=== PATIENT | female | born 1950 | race Caucasian/White ===

== ENCOUNTER 2017-09-29 19:10 | Emergency (ER) | payer MEDICARE, OTHER ==
--- OUTSIDE RECORDS SUMMARY | 2017-09-29 19:57 | XMS REPORT ---
:1950 External Reference #:[id number] Author Organization [facility] Address [address] [place] [address] Phone [phone] Care Team Providers Name Role Phone HCP given Primary Care Physician Unavailable Payers Type Date Identification Numbers Payment Provider Subscriber Commercial Policy Number: [id number] [facility] Keren Hartman PayID: [id number] [address] [place] [address] Problems Date Description Provider Status Onset: 07/01/2003 Malignant tumor of thyroid gland Hu Johnson M.D. Active Onset: 03/27/2004 Pure hypercholesterolemia Hu Johnson M.D. Active Onset: 03/27/2004 Migraine with typical aura Hu Johnson M.D. Active Onset: 04/27/2006 Allergic rhinitis Hu Johnson M.D. Active Onset: 06/09/2012 Obstructive sleep apnea syndrome Hu Johnson M.D. Active Onset: 08/11/2015 History of malignant neoplasm of Hu Johnson M.D. Active thyroid Family History Date Family Member(s) Problem(s) Comments Father Hypercholesterolemia : Father due to [place] (03/14/2017) (age 96 Years) Father High Blood Pressure Father [place] ~age 70 Mother Hypercholesterolemia : Mother due to Unknown but it was during (age 74 Years) Causes post-op period after carotid surgery Mother High Blood Pressure Mother Angina started in her 60s, possibly earlier Mother Carotid Stenosis required endarterectomy Mother AAA First Son Jelani First Son 1968 Second Son Gavin Second Son 1971 Third Son Nate Third Son 1974 Fourth Son Jacky Fourth Son 1981 Number of Siblings Siblings: 2 sisters Social History Type Date Description Comments Education Highest level completed, 12th grade Marital Status had surgery for thyroid CA w/ LN mets 07/01. 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 Allergies, Adverse Reactions, Alerts Date Description Reaction Status Severity Comments 07/23/2010 Tramadol active Itchy, prolonged somnolence 03/27/2004 NKDA inactive Medications Medication Date Status Form Strength Qnty SIG Indications Ordering Provider PT For Low Active please M54.5 Silcoff, Back Pain 017 evaluate and jocelyn Lui, M.DAndres modalities as needed, instruct in hep Magnesium Active 1 by mouth Unknown 017 daily Canibus Active 3 drops in Unknown Tincture 017 water per day Allergy Med Active prn Unknown 017 Synthroid Active Tablets 125mcg 90tabs 1 tab by C73 Hektor, 017 mouth every DAVON Barron morning (at least 30 minutes before breakfast) for thyroid Vitamin D3 Active Capsules 1000Unit 1 po daily Unknown 015 Cpap Active Unknown 015 Mobic Active Tablets 7.5mg 90tabs 1 by mouth M15.0 Irish 013 every day as Walter, needed for D.O. joint pain M79.671 Simvastatin 06/12/2012 Active Tablets 10mg 90tabs take 1 E78.0 Silcoff, tablet by Hu mouth once M.D. daily Coq10 Active 200mg 1 po daily Unknown [place]-3 Active 1 po daily Unknown Multivitamin Active Tablets 1 by mouth Unknown Adult every day Prednisone 03/21/2017 - Hx Tablets 20mg 21tabs 3 by mouth R05 Silcoff, 03/29/2017 every cem Lui M.DAndres for 5 days then 2 every morning for 3 days then stop it J45.991 Advair 03/21/2017 - Hx Aerosol 250-50mcg/Dose 60units inhale 1 R05 Silcoff, Diskus 06/26/2017 puff twice Ellen Lui daily; gargle after use J45.991 Dulera 03/16/2017 - Hx Aerosol 100-5mcg/Act 2samples 2 puffs R05 Hektor , 03/21/2017 twice a day DAVON Barron for cough; stop when cough at bay for 1 week; rinse mouth after use J45.20 Sulfamethoxazole/Trimethoprim 09/28/2016 Hx Tablets 800-160mg 14tabs 1 tab N39.0 Hektor, DS - by Beatrice, 04/04/2017 mouth PA twice a day x7 days Montelukast Sodium 08/16/2016 Hx Tablets 10mg 90tabs one R05 Hektor, - tablet Beatrice, 03/21/2017 by PA mouth every day in the evenin g as needed for cough/ allerg ies J45.20 J30.9 Vitamin B12 08/15/2016 - Hx Tablets 100mcg 1 by mouth Unknown 09/04/2017 every day Amoxicillin 05/28/2016 - Hx Capsules 250mg 30c 1 three times J01.90 Mati AAndres 06/07/2016 aps a day for jake Brown for M.D. bronchitis Synthroid 01/30/2016 - Hx Tablets 112mcg 90t take 1 tablet C73 Silcoff, 12/05/2016 abs every Hu, cem; for M.D. thyroid Vitamin C 01/26/2016 - Hx Tablets 1000mg one po daily Unknown 06/26/2017 Azithromycin 09/26/2015 - Hx Tablets 250mg 6ta 2 by mouth on R05 Silcoff, 10/15/2015 bs day then 1 by margaux Lui daily M.D. for 4 more days; for persistent cough Dulera 09/15/2015 - Hx Aerosol 100-5mcg/ 2sa 2 puffs twice R05 Silcoff, 09/26/2015 Act mpl a day for nasir Lui cough; stop M.D. when cough at bay for 1 week; resume at onset of colds; rinse mouth after use Benzonatate 09/15/2015 - Hx Capsules 200mg 30c 1 by mouth R05 Silcoff, 09/25/2015 aps three times a Hu, day as needed M.D. for cough Fluticasone 09/15/2015 - Hx Suspension 50mcg/Act 16g 2 sprays into J31.0 Silcoff, Propionate 09/26/2015 m each nostril Hu, once daily M.D. for nasal congestion; may stop when symptoms well controlled; resume if needed Echinacea 08/10/2015 - Hx Capsules 1 po daily Unknown 01/26/2016 Calcium/Mag/D 07/24/2014 - Hx 2 po qd Unknown 01/26/2016 [place] Wort 05/29/2014 - Hx Capsules 2 by mouth Silcoff, 06/26/2017 every day Ellen Lui Temazepam 07/17/2013 - Hx Capsules 15mg 30c 1-2 by mouth 780.52 Silcoff , 01/24/2014 aps every night Hu, as needed for M.D. sleep (take 30min or less before bed) Mobic 05/03/2013 - Hx Tablets 7.5mg 30t 1 by mouth 715.09 Sopchak, 07/16/2013 abs every day Fanta Watson Sulfamethoxazole 12/12/2012 - Hx Tablets 800-160mg 6ta 1 po bid x3 595.0 Silcoff, /Trimethoprim DS 12/15/2012 bs days; for Hu urinary tract M.D. infection Amoxicillin 04/20/2012 - Hx Capsules 500mg 21c 1 tid for 7 595.0 Mati A. 04/27/2012 aps days Ellen Herrera Gabapentin 12/23/2011 - Hx Capsules 100mg 90c Start 1 po 327.52 Silcoff , 04/19/2012 aps qhs, increase Hu, after 1 week M.D. to 2 tabs qhs x 1 wk, then 3 tabs po qhs Vicodin 07/24/2011 - Hx Tablets 5mg;500 20t 1-2 po q4 525.9 Silcoff, 12/22/2011 mg abs hours prn Ellen Lui Amoxicillin/Pota 07/24/2011 - Hx Tablets 875-125mg 20t 1 tab po bid 525.9 Silcoff, ssium 12/22/2011 abs x 10 days Naomi Luiulanate Ellen Zocor 09/09/2010 - Hx Tablets 10mg 90t 1 po qd 272.0 Silcoff, 06/12/2012 abs Ellen Lui PT For Right 09/09/2010 - Hx evaluate and 719.46 Silcoff, Knee Pain 06/07/2011 treatHu modalities Shravan.Dereje prn, instruct in hep PT For Bilateral 09/09/2010 - Hx evaluate and 726.5 Silcoff, Hip 06/07/2011 Hu banks Pain/Trochanteri modalities Ellen c Bursitis prn, instruct in hep Tramadol HCL 07/22/2010 - Hx Tablets 50mg 50t 1-2 po q6h 729.1 Silcoff, 07/23/2010 abs prn for pain Ellen Lui Cytomel 06/22/2010 - Hx Tablets 25mcg 30t 1 po qd for 193 Silcoff, 06/28/2010 abs thyroid and Hu fatigue Ellen 780.79 Denavir 06/08/2010 - Hx Cream 1% 1.5gm apply q2 hours 054.9 Silcoff, 05/03/2013 while awake x 4 Ellen Lui days at first symptom of developing cold sore or sore in nose PT For Low 04/22/2009 - Hx please evaluate 724.2 Silcoff, Back Pain 08/05/2009 and Hu banks M.D. (Suspect modalities prn, DDD) instruct in hep Amanda D 11/07/2006 - Hx Tablets 60mg;12 60tabs 1 po bid prn 477.8 Silcoff, 09/07/2009 0 mg for nasal/sinus Ellen Lui congestion 381.81 477.9 PT Referral 07/09/2006 - Hx Please Evaluate Silcoff, For Right Knee 07/26/2007 And Hu Banks M.D. Pain Modalities prn PT Referral 07/09/2006 - Hx please evaluate Silcoscooter, For Right Hip 07/26/2007 and Hu banks M.D. And Si Pain modalities prn Celebrex 07/01/2006 - Hx Capsules 200mg 100ca 1 po 1-2x/D 719.4 Silcoff , 04/21/2009 ps 5 Ellen Lui 719.46 Estradiol 04/27/2006 - Hx Tablets 0.5mg 0tabs 1 po qod Unknown 06/07/2011 Amanda 04/27/2006 - Hx Tablets 180mg 1 po qd prn for 477.8 Silcoff, 11/07/2006 allergies Ellen Lui 381.81 477.9 Amanda D 11/26/2005 - Hx Tablets 60mg;120 mg 90tabs 1 bid for 477.8 Mati A. 04/27/2006 allergy and Klepasarah, congestion M.DAndres 381.81 477.9 Guaifenesin 11/26/2005 - Hx Tablets 1200mg 60tabs 1 bid until 381.81 Mati A. 12/27/2005 gone for Klesherrill congestion M.DAndres and tightness Vicodin 10/14/2005 - Hx Tablets 5mg;500 30tabs 1-2 po q4 724.2 klepack 04/21/2009 mg hours prn Tessalon 10/04/2005 - Hx Perles 100mg 30units 1-2 PO tid 786.2 Silcoff, 10/14/2005 prn Cough Ellen Lui Zithromax 10/04/2005 - Hx Tablets 250mg 1Pack 2 PO On Day 786.2 Silcoff , Z-Trace 10/09/2005 1, 1 PO On Hu, Days 2-5 M.D. Imitrex 03/27/2004 - Hx Tablets 25mg 30tabs 1 po prn as V07.2 Silcoff, 04/21/2009 directed for Hu migraineEllen smalls may repeat after 2 hours 346.00 Synthroid 09/13/2003 - Hx Tablets 125mcg 45tabs Take 1 C73 Silcoff, 01/30/2016 Tablet Hu, Every Other M.D. Day; for thyroid Synthroid 07/01/2003 - Hx Tablets 125mcg 1 po qam on Silcoff, 07/01/2003 empty Hu stomach Ellen Zocor 07/01/2003 - Hx Tablets 10mg 90tabs 1 po qd 272.0 Silcoff, 07/22/2010 Ellen Lui Synthroid 07/01/2003 - Hx Tablets 112mcg 45tabs Take 1 C73 Silcoff, 01/30/2016 Tablet Hu, Every Other M.D. Day; for thyroid Imitrex 04/22/2003 - Hx Tablets 50mg 20tabs 1 po for Silcoff, 03/27/2004 migraine Hu, may repeat M.D. q2h prn Multivitamins - Hx Tablets 100tabs 1 po qd Unknown 09/03/2014 Shaneka-C - Hx Tablets 1000mg 1 qd Unknown 01/24/2014 B Complex - Hx 1 qd Unknown 07/23/2014 Zinc - Hx Unknown 08/11/2015 Glucosamine/Chond - Hx Capsules 2 po daily Unknown roitin Maximum 09/04/2017 Strength Immunizations CPT Code Status Date Vaccine Lot # [id number] Given 08/04/2017 Influenza Virus Vaccine, Quadrivalent, Split, [id number] Preservative Free 55348 Given 06/29/2016 Pneumococcal Immunization 14399 Given 06/29/2016 Influenza Vaccine Split Virus Preservative Free [place] Use 83200 Given 06/23/2015 Prevnar 13 43020 Given 06/23/2015 Influenza Vaccine Split Virus Preservative Free [place] Use 96313 Given 05/24/2014 Influenza Virus Vaccine, Quadrivalent, Split, [id number] Preservative Free 05859 Given 06/21/2013 Flu, Split Virus 3Yrs 20212 Given 08/22/2012 Flu, Split Virus 3Yrs 05512 Given 06/08/2011 Zostavax [id number] 34578 Given 04/27/2006 Adacel or Boostrix, TDaP [id number] 20046 Refused 06/08/2011 Flu, Split Virus 3Yrs 41583 Refused 06/08/2010 Flu, Split Virus 3Yrs Vital Signs Date Vital Result Comment 09/05/2017 BP Systolic 154 mmHg repeat 142/82 (per nurses) BP Diastolic 78 mmHg repeat 142/82 (per nurses) BP Systolic Recheck 158 mmHg BP Diastolic Recheck 82 mmHg Weight 174.00 lb 06/27/2017 BP Systolic 120 mmHg BP Diastolic 78 mmHg Weight 170.00 lb w/sandals 04/05/2017 BP Systolic 122 mmHg BP Diastolic 70 mmHg Weight 170.00 lb with sandals 03/21/2017 BP Systolic 148 mmHg BP Diastolic 84 mmHg O2 % BldC Oximetry 96 % 03/16/2017 BP Systolic 124 mmHg BP Diastolic 76 mmHg Body Temperature 98.2 F Height 65 inches 5'5" Weight 170.00 lb BMI (Body Mass Index) 28.3 kg/m2 09/28/2016 BP Systolic 142 mmHg BP Diastolic 62 mmHg Weight 173.00 lb 08/16/2016 BP Systolic 122 mmHg BP Diastolic 70 mmHg Heart Rate 80 /min reg Respiratory Rate 14 /min not laboured Height 65 inches 5'5" Weight 171.00 lb BMI (Body Mass Index) 28.5 kg/m2 05/28/2016 BP Systolic 128 mmHg BP Diastolic 68 mmHg Body Temperature 98.5 F Weight 168.00 lb 04/13/2016 BP Systolic 118 mmHg BP Diastolic 76 mmHg Weight 168.00 lb 01/27/2016 BP Systolic 122 mmHg BP Diastolic 80 mmHg Height 65.5 inches 5'5.50" with sneakers Weight 170.00 lb with sneakers BMI (Body Mass Index) 27.9 kg/m2 10/16/2015 BP Systolic 130 mmHg BP Diastolic 72 mmHg Weight 170.00 lb 09/15/2015 BP Systolic 142 mmHg BP Diastolic 66 mmHg Heart Rate 80 /min reg Respiratory Rate 14 /min not laboured Body Temperature 98.1 F Weight 170.00 lb 08/11/2015 BP Systolic 140 mmHg BP Diastolic 74 mmHg BP Systolic Recheck 144 mmHg R arm sitting BP Diastolic Recheck 86 mmHg R arm sitting Heart Rate 76 /min reg Respiratory Rate 12 /min not laboured Height 64.25 inches 5'4.25" Weight 166.00 lb BMI (Body Mass Index) 28.3 kg/m2 12/12/2014 BP Systolic 138 mmHg BP Diastolic 76 mmHg Body Temperature 98.0 F Height 65.25 inches 5'5.25" shoes on Weight 170.00 lb shoes on BMI (Body Mass Index) 28.1 kg/m2 08/06/2014 BP Systolic 118 mmHg BP Diastolic 70 mmHg Weight 160.00 lb 05/24/2014 BP Systolic 114 mmHg BP Diastolic 68 mmHg Heart Rate 80 /min reg Respiratory Rate 12 /min not laboured Body Temperature 98.4 F Height 64.5 inches 5'4.50" Weight 163.00 lb BMI (Body Mass Index) 27.5 kg/m2 02/08/2014 BP Systolic 120 mmHg BP Diastolic 74 mmHg Body Temperature 98.4 F Weight 164.00 lb 07/17/2013 BP Systolic 118 mmHg BP Diastolic 82 mmHg Height 64.50 inches 5'4.50" Weight 163.00 lb BMI (Body Mass Index) 27.5 kg/m2 05/03/2013 BP Systolic 110 mmHg BP Diastolic 76 mmHg Weight 163.00 lb 03/14/2013 BP Systolic 128 mmHg BP Diastolic 86 mmHg Body Temperature 98.2 F Weight 160.00 lb 12/12/2012 BP Systolic 116 mmHg BP Diastolic 78 mmHg Body Temperature 98.0 F Height 64.5 inches 5'4.50" Weight 166.00 lb BMI (Body Mass Index) 28.1 kg/m2 06/09/2012 BP Systolic 130 mmHg BP Diastolic 86 mmHg Height 65 inches 5'5" Weight 164.00 lb BMI (Body Mass Index) 27.3 kg/m2 Last Menstrual Period 0 04/20/2012 BP Systolic 126 mmHg BP Diastolic 90 mmHg Body Temperature 98.4 F Weight 160.00 lb Last Menstrual Period 0 12/23/2011 BP Systolic 129 mmHg BP Diastolic 76 mmHg Heart Rate 75 /min Body Temperature 98.4 F Weight 164.00 lb 07/24/2011 BP Systolic 134 mmHg BP Diastolic 80 mmHg Heart Rate 68 /min Body Temperature 98.0 F Weight 163.00 lb 06/08/2011 BP Systolic 100 mmHg BP Diastolic 64 mmHg Height 65 inches 5'5" Weight 163.00 lb BMI (Body Mass Index) 27.1 kg/m2 09/09/2010 BP Systolic 116 mmHg BP Diastolic 78 mmHg Weight 166.00 lb 07/22/2010 BP Systolic 128 mmHg BP Diastolic 68 mmHg Weight 165.00 lb 06/08/2010 BP Systolic 122 mmHg BP Diastolic 84 mmHg Heart Rate 72 /min reg Respiratory Rate 12 /min not laboured 08/06/2009 BP Systolic 102 mmHg BP Diastolic 76 mmHg Body Temperature 98.4 F Weight 164.00 lb Last Menstrual Period 0 04/22/2009 BP Systolic 118 mmHg BP Diastolic 78 mmHg Weight 162.00 lb Last Menstrual Period 0 08/13/2008 BP Systolic 100 mmHg BP Diastolic 78 mmHg BP Systolic Recheck 124 mmHg R arm lying; 120/74 standing BP Diastolic Recheck 80 mmHg R arm lying; 120/74 standing Heart Rate 72 /min reg Body Temperature 98.4 F Height 65 inches 5'5" Weight 170.00 lb BMI (Body Mass Index) 28.3 kg/m2 03/29/2008 BP Systolic 122 mmHg BP Diastolic 78 mmHg Height 65 inches 5'5" Weight 167.00 lb BMI (Body Mass Index) 27.8 kg/m2 Last Menstrual Period 0 07/26/2007 BP Systolic 116 mmHg BP Diastolic 80 mmHg Height 65 inches 5'5" Weight 163.00 lb BMI (Body Mass Index) 27.1 kg/m2 10/12/2006 BP Systolic 106 mmHg BP Diastolic 74 mmHg Height 65 inches 5'5" Weight 163.50 lb BMI (Body Mass Index) 27.2 kg/m2 07/01/2006 BP Systolic 102 mmHg BP Diastolic 80 mmHg Height 65 inches 5'5" Weight 159.00 lb BMI (Body Mass Index) 26.5 kg/m2 Last Menstrual Period 0 04/27/2006 BP Systolic 134 mmHg lg cuff BP Diastolic 76 mmHg lg cuff BP Systolic Recheck 132 mmHg R arm sitting BP Diastolic Recheck 76 mmHg R arm sitting Heart Rate 76 /min reg Respiratory Rate 12 /min not laboured Height 65 inches 5'5" Weight 155.00 lb BMI (Body Mass Index) 25.8 kg/m2 11/26/2005 BP Systolic 125 mmHg BP Diastolic 70 mmHg Body Temperature 97.7 F Height 65 inches 5'5" Weight 156.00 lb BMI (Body Mass Index) 26.0 kg/m2 10/14/2005 BP Systolic 110 mmHg BP Diastolic 78 mmHg Body Temperature 98.0 F Height 65 inches 5'5" 10/04/2005 BP Systolic 108 mmHg BP Diastolic 70 mmHg Body Temperature 97.4 F Height 65 inches 5'5" 08/31/2005 BP Systolic 112 mmHg BP Diastolic 78 mmHg Height 65 inches 5'5" Weight 156.00 lb BMI (Body Mass Index) 26.0 kg/m2 03/10/2005 BP Systolic 100 mmHg BP Diastolic 70 mmHg Height 65 inches 5'5" Weight 166.00 lb BMI (Body Mass Index) 27.6 kg/m2 03/27/2004 BP Systolic 118 mmHg R Arm Sitting BP Diastolic 80 mmHg R Arm Sitting Height 65 inches 5'5" Weight 160.00 lb BMI (Body Mass Index) 26.6 kg/m2 07/01/2003 BP Systolic 118 mmHg BP Diastolic 76 mmHg Weight 168.00 lb Results Test Date Test Result H/L Range Note Lyme Western Blot 08/08/2017 Lyme Disease IgG Ab WB Negative Negative Lyme Disease IgG Bands Present p41, kDa Lyme Disease IgM Ab WB Negative Negative Lyme Disease IgM Bands Present p41, kDa Lyme Disease Interpretation See Comment 1 Urine Micro Inhouse 06/27/2017 Ua WBC - 2 Ua RBC - 2 Ua Casts - 2 Ua Epi - 2 Ua Other - 2 Ua Glucose - 2 Ua Bilirubin - 2 Ua Ketones - 2 Ua Specific [place] 1.010 2 Ua Blood - 2 Ua PH 6.0 2 Ua Protein - 2 Ua Urobilinogen - 2 Ua Nitrite - 2 Ua Leukocytes - 2 Laboratory test 03/01/2017 TSH (Thyroid Stim Horm) 0.12 mcIU/mL Low 0.34- 5.60 finding Lipid Profile 12/02/2016 Triglycerides 168 mg/dL 3 (Trig/Chol/HDL) Cholesterol 192 mg/dL 4 HDL Cholesterol 47.4 mg/dL 5 LDL Cholesterol 111 mg/dL 6 Laboratory test finding 12/02/2016 TSH (Thyroid Stim Horm) 0.64 mcIU/mL 0.34-5.60 7 Culture Urine Inhouse 09/28/2016 Colonies 06/22 8 Ua Inhouse 09/28/2016 Ua Glucose - 8 Ua Bilirubin - 8 Ua Ketones - 8 Ua Specific [place] 1.005 8 Ua Blood 3+ 8 Ua PH 5.0 8 Ua Protein - 8 Ua Urobilinogen - 8 Ua Nitrite - 8 Ua Leukocytes 2+ 8 Laboratory test 06/21/2016 TSH (Thyroid Stim Horm) 0.17 mcIU/mL Low 0.34- 5.60 9 finding Lipid Profile 06/21/2016 Triglycerides 123 mg/dL 10 (Trig/Chol/HDL) Cholesterol 189 mg/dL 11 HDL Cholesterol 45.9 mg/dL 12 LDL Cholesterol 119 mg/dL 13 CBC Auto Diff 04/13/2016 White Blood Count 6.1 10^3/uL 3.5-10.8 14 Red Blood Count 5.11 10^6/uL 4.0-5.4 14 Hemoglobin 14.6 g/dL 12.0-16.0 14 Hematocrit 44 % 35-47 14 Mean Corpuscular Volume 86 fL 80-97 14 Mean Corpuscular Hemoglobin 29 pg 27-31 14 Mean Corpuscular HGB Conc 33 g/dL 31-36 14 Red Cell Distribution Width 14 % 10.5-15 14 Platelet Count 219 10^3/uL 150-450 14 Mean Platelet Volume 9 um3 7.4-10.4 14 Abs Neutrophils 3.3 10^3/uL 1.5-7.7 14 Abs Lymphocytes 1.9 10^3/uL 1.0-4.8 14 Abs Monocytes 0.5 10^3/uL 0-0.8 14 Abs Eosinophils 0.3 10^3/uL 0-0.6 14 Abs Basophils 0.1 10^3/uL 0-0.2 14 Abs Nucleated RBC 0.02 10^3/uL 14 Granulocyte % 54.3 % 38-83 14 Lymphocyte % 30.7 % 25-47 14 Monocyte % 8.3 % 1-9 14 Eosinophil % 5.7 % 0-6 14 Basophil % 1.0 % 0-2 14 Nucleated Red Blood Cells % 0.3 14 Comp Metabolic Panel 04/13/2016 Sodium 136 mmol/L 133-145 14 Potassium 4.5 mmol/L 3.5-5.0 14 Chloride 100 mmol/L Low 101-111 14 Co2 Carbon Dioxide 31 mmol/L 22-32 14 Anion Gap 5 mmol/L 2-11 14 Glucose 81 mg/dL 70-100 14 Blood Urea Nitrogen 26 mg/dL High 6-24 14 Creatinine 0.85 mg/dL 0.51-0.95 14 BUN/Creatinine Ratio 30.6 High 8-20 14 Calcium 9.3 mg/dL 8.6-10.3 14 Total Protein 7.6 g/dL 6.4-8.9 14 Albumin 4.4 g/dL 3.2-5.2 14 Globulin 3.2 g/dL 2-4 14 Albumin/Globulin Ratio 1.4 1-3 14 Total Bilirubin 0.30 mg/dL 0.2-1.0 14 Alkaline Phosphatase 85 U/L 34-104 14 Alt 23 U/L 7-52 14 Ast 27 U/L 13-39 14 Egfr Non- 66.9 >60 14 Egfr 86.1 >60 14, 15 Laboratory test finding 04/13/2016 Erythrocyte Sed Rate 16 mm/Hr 0-40 14 , 16 Protein Electrophoresis 04/13/2016 Total Protein(Pep) 7.9 g/dL 6.3 - 7.9 14 Albumin 3.7 g/dL 3.4-4.7 14 Alpha-1 Globulin 0.2 g/dL 0.1-0.3 14 Alpha-2 Globulin 1.0 g/dL 0.6-1.0 14 Beta Globulin 1.1 g/dL 0.7-1.2 14 Gamma Globulin 1.8 g/dL 0.6-1.6 14 Albumin/Globulin Ratio 0.90 14 Impression See Comment 14, 17 Xray 04/13/2016 X-Ray, Hips, 2 View wnl With Pelvis - Left Laboratory test finding 01/27/2016 TSH (Thyroid Stim 0.05 ?IU/mL Low 0.34- 5.60 Horm) CBC Auto Diff 01/27/2016 White Blood Count 5.0 10^3/uL 3.5-10.8 Red Blood Count 4.75 10^6/uL 4.0-5.4 Hemoglobin 13.7 g/dL 12.0-16.0 Hematocrit 42 % 35-47 Mean Corpuscular Volume 89 fL 80-97 Mean Corpuscular Hemoglobin 29 pg 27-31 Mean Corpuscular HGB Conc 32 g/dL 31-36 Red Cell Distribution Width 14 % 10.5-15 Platelet Count 229 10^3/uL 150-450 Mean Platelet Volume 9 um3 7.4-10.4 Abs Neutrophils 2.9 10^3/uL 1.5-7.7 Abs Lymphocytes 1.6 10^3/uL 1.0-4.8 Abs Monocytes 0.4 10^3/uL 0-0.8 Abs Eosinophils 0.2 10^3/uL 0-0.6 Abs Basophils 0 10^3/uL 0-0.2 Abs Nucleated RBC 0.01 10^3/uL Granulocyte % 56.7 % 38-83 Lymphocyte % 31.1 % 25-47 Monocyte % 8.0 % 1-9 Eosinophil % 3.6 % 0-6 Basophil % 0.6 % 0-2 Nucleated Red Blood Cells % 0.1 Lipid Profile (Trig/Chol/HDL) 08/22/2015 Triglycerides 97 mg/dL 18 Cholesterol 193 mg/dL 19 HDL Cholesterol 52.8 mg/dL 20 LDL Cholesterol 121 mg/dL 21 Laboratory test finding 08/22/2015 TSH (Thyroid Stim 0.19 ?IU/mL Low 0.34- 5.60 Horm) Alt (SGPT) 25 U/L 7-52 CBC Auto Diff 05/24/2014 White Blood Count 6.9 10^3/uL 4.8-10.8 Red Blood Count 4.65 10^6/uL 4.0-5.4 Hemoglobin 13.7 g/dL 12.0-16.0 Hematocrit 40 % 35-47 Mean Corpuscular Volume 87 fL 80-97 Mean Corpuscular Hemoglobin 30 pg 27-31 Mean Corpuscular HGB Conc 34 g/dL 31-36 Red Cell Distribution Width 14 % 10.5-15 Platelet Count 222 10^3/uL 150-450 Mean Platelet Volume 9 um3 7.4-10.4 Abs Neutrophils 4.2 10^3/uL 1.5-7.7 Abs Lymphocytes 1.9 10^3/uL 1.0-4.8 Abs Monocytes 0.6 10^3/uL 0-0.8 Abs Eosinophils 0.1 10^3/uL 0-0.6 Abs Basophils 0.1 10^3/uL 0-0.2 Abs Nucleated RBC 0 10^3/uL Granulocyte % 61.0 % 38-83 Lymphocyte % 28.0 % 25-47 Monocyte % 8.2 % 1-9 Eosinophil % 2.0 % 0-6 Basophil % 0.8 % 0-2 Nucleated Red Blood Cells % 0 Laboratory test 05/24/2014 TSH (Thyroid Stimulating 0.13 IU/mL Low 0.34- 5.60 finding Horm) Laboratory test 02/04/2014 TSH (Thyroid Stimulating 0.13 IU/mL Low 0.34- 5.60 22 finding Horm) Lipid Profile 02/04/2014 Triglycerides 137 mg/dL 23 (Trig/Chol/HDL) Cholesterol 154 mg/dL 24 HDL Cholesterol 39.3 mg/dL 25 LDL Cholesterol 87 mg/dL 26 Laboratory test finding 02/04/2014 Alt 19 U/L 7-52 27 Urine Culture And 12/16/2013 Urine Culture (SEE NOTE) 28 Sensitivities Laboratory test finding 01/31/2013 TSH (Thyroid 0.26 miu/mL Low 0.34-5.60 Stimulating Horm) Hepatitis C Antibody Nonreactive Nonreactive Lipid Profile (Trig/Chol/HDL) 01/31/2013 Triglycerides 133 mg/dL 40-200 Cholesterol 177 mg/dL Less than 200 HDL Cholesterol 50 mg/dL 40-60 29 Cholesterol/HDL Ratio 3.5 Average 1-4.44 LDL Cholesterol 100.4 mg/dL High Less Than 100 30 Laboratory test finding 01/31/2013 Alt 24 U/L 14-54 Culture Urine Inhouse 12/12/2012 Colonies confluent Urine Micro Inhouse 12/12/2012 Ua WBC 10-20 Ua RBC 3-8 Ua Casts - Ua Epi - Ua Other WBC clumps and bacteria Ua Glucose - Ua Bilirubin - Ua Ketones - Ua Specific [place] 1.015 Ua Blood lg Ua PH 6.0 Ua Protein 1+ Ua Urobilinogen - Ua Nitrite + Ua Leukocytes sm Culture Urine Inhouse 05/18/2012 Colonies NO GROWTH Urine Micro Inhouse 05/18/2012 Ua WBC - Ua RBC - Ua Casts - Ua Epi - Ua Other - Ua Glucose - Ua Bilirubin - Ua Ketones - Ua Specific [place] 1.010 Ua Blood - Ua PH 7.0 Ua Protein - Ua Urobilinogen - Ua Nitrite - Ua Leukocytes - Urine Micro Inhouse 04/27/2012 Ua WBC 0-1 Ua RBC - Ua Casts - Ua Epi 3-6 Ua Other - Ua Glucose - Ua Bilirubin - Ua Ketones - Ua Specific [place] 1.005 Ua Blood - Ua PH 6.0 Ua Protein - Ua Urobilinogen - Ua Nitrite - Ua Leukocytes - Culture Urine Inhouse 04/27/2012 Colonies 06/24 confluen Urine Micro Inhouse 04/20/2012 Ua WBC loaded Ua RBC loaded Ua Casts - Ua Epi - Ua Other bacteria Ua Glucose - Ua Bilirubin - Ua Ketones - Ua Specific [place] 1.010 Ua Blood lrg Ua PH 7.5 Ua Protein 1+ Ua Urobilinogen - Ua Nitrite + Ua Leukocytes lrg Culture Urine Inhouse 04/20/2012 Colonies 06/24 Comp Metabolic Panel 12/30/2011 Sodium 138 mmol/L 135-145 31 Potassium 4.7 mmol/L 3.5-5.0 31 Chloride 99 mmol/L Low 101-111 31 Co2 (Carbon Dioxide) 32.0 mmol/L 22-32 31 Anion Gap 7.0 mmol/L 2-11 31, 32 Glucose 91 mg/dL 70-100 31 BUN 14 mg/dL 6-24 31 Creatinine 0.9 mg/dL 0.50-1.40 31 One Over Creatinine 1.11 31 BUN/Creatinine Ratio 15.6 8-20 31 Calcium 9.5 mg/dL 8.1-9.9 31 Total Protein 7.3 GM/DL 6.2-8.1 31 Albumin 4.2 GM/DL 3.2-5.2 31 Globulin 3.1 GM/DL 2-4 31 Albumin/Globulin Ratio 1.4 1-3 31 Bilirubin Total 0.6 mg/dL 0.4-1.5 31, 33 Alkaline Phosphatase 73 U/L 30-110 31 Alt (SGPT) 19 U/L 14-54 31 Ast (Sgot) 23 U/L 12-42 31 eGFR Non- 63.4 > 60 31 eGFR 81.6 > 60 31, 34 Laboratory test finding 12/30/2011 Magnesium 2.2 mg/dL 1.7-2.6 31 Vitamin D, 25 Hydroxy 12/30/2011 25-Hydroxy Vitamin D2 <4.0 ng/mL () 31 25-Hydroxy Vitamin D3 33 ng/mL () 31 25-Hydroxy Vitamin D Total 33 ng/mL () 31, 35 Laboratory test finding 12/28/2011 Alt (SGPT) 21 U/L 14-54 Lipid Profile (Trig/Chol/HDL) 12/28/2011 Triglyceride 145 mg/dL 40-200 Cholesterol 157 mg/dL Less Than 200 36 High Density Lipoprotein 44 mg/dL 40-60 37 Cholesterol/HDL Ratio 3.57 AVERAGE 1-4.44 Low Density Lipoprotein 84 mg/dL Less Than 100 38 Laboratory test finding 12/28/2011 TSH 0.22 MIU/ML Low 0.34-5.60 Laboratory test finding 06/01/2011 TSH 0.49 MIU/ML 0.34-5.60 Lipid Profile (Trig/Chol/HDL) 06/01/2011 Triglyceride 144 mg/dL 40-200 Cholesterol 187 mg/dL Less Than 200 39 High Density Lipoprotein 50 mg/dL 40-60 40 Cholesterol/HDL Ratio 3.74 AVERAGE 1-4.44 Low Density Lipoprotein 108 mg/dL High Less Than 100 41 Laboratory test finding 06/01/2011 Alt (SGPT) 22 U/L 14-54 Laboratory test finding 07/22/2010 CPK (Creatine Kinase) 109 U/L 0-170 C Reactive Protein 1.0 mg/dL High Less Than 0.5 Erythrocyte Sed Rate 25 MM/HR 0-30 CBC With Electronic Diff 07/22/2010 White Blood Count 6.4 CUMM 4.8-10.8 Red Cell Count 4.76 CUMM 4.2-5.4 Hemoglobin 14.1 g/dL 12.0-16.0 Hematocrit 41 % 35-47 Mean Corpuscular Volume 87 um3 79-97 Mean Corpuscular Hemoglob 30 pg 27-31 Mean Corpuscular HGB Cone 34 g/dL 32-36 Redcell Distribution WDTH 13 % 10.5-15 Platelet Count 245 CUMM 150-450 Mean Platelet Volume 8.0 um3 7.4-10.4 Gran % 63.1 % 38-83 Lymph % 27.3 % 25-47 Mononuclear % 6.4 % 1-9 Eosinophil % 2.8 % 0-6 Basophil % 0.4 % 0-2 Abs Lymphs 1.7 1.0-4.8 Abs Mononuclear 0.4 0-0.8 Absolute Neutrophil Count 4.0 1.5-7.7 Abs Eosinophils 0.2 0-0.6 Abs Basophils 0 0-0.2 Laboratory test finding 06/11/2010 TSH 0.43 MIU/ML 0.34-5.60 Thyroglobulin,Tumor 06/11/2010 Thyroglobulin AB SCRN <1.8 IU/mL < 4.0 Marker Thyroglobulin Tumor Marker 1.8 ng/mL () 42 Lipid Profile (Trig/Chol/HDL) 06/11/2010 Triglyceride 141 mg/dL 40-200 Cholesterol 195 mg/dL Less Than 200 43 High Density Lipoprotein 49 mg/dL 40-60 44 Cholesterol/HDL Ratio 3.98 AVERAGE 1-4.44 Low Density Lipoprotein 118 mg/dL High Less Than 100 45 Laboratory test finding 06/11/2010 Thyroxine 10.5 g/dL 5-12 CBC With Electronic Diff 06/11/2010 White Blood Count 5.4 CUMM 4.8-10.8 Red Cell Count 4.71 CUMM 4.2-5.4 Hemoglobin 14.0 g/dL 12.0-16.0 Hematocrit 41 % 35-47 Mean Corpuscular Volume 88 um3 79-97 Mean Corpuscular Hemoglob 30 pg 27-31 Mean Corpuscular HGB Cone 34 g/dL 32-36 Redcell Distribution WDTH 14 % 10.5-15 Platelet Count 227 CUMM 150-450 Mean Platelet Volume 8.0 um3 7.4-10.4 Gran % 55.5 % 38-83 Lymph % 34.7 % 25-47 Mononuclear % 6.5 % 1-9 Eosinophil % 2.8 % 0-6 Basophil % 0.5 % 0-2 Abs Lymphs 1.9 1.0-4.8 Abs Mononuclear 0.4 0-0.8 Absolute Neutrophil Count 3.0 1.5-7.7 Abs Eosinophils 0.2 0-0.6 Abs Basophils 0 0-0.2 Comp Metabolic Panel 06/11/2010 Sodium 139 mmol/L 135-145 Potassium 4.3 mmol/L 3.5-5.0 Chloride 101 mmol/L 101-111 Co2 (Carbon Dioxide) 32.0 mmol/L 22-32 Anion Gap 6.0 mmol/L 2-11 46 Glucose 88 mg/dL 70-100 47 BUN 15 mg/dL 6-24 Creatinine 0.80 mg/dL 0.50-1.40 One Over Creatinine 1.20 BUN/Creatinine Ratio 18.8 8-20 Calcium 9.3 mg/dL 8.1-9.9 Total Protein 7.8 GM/DL 6.2-8.1 Albumin 4.3 GM/DL 3.2-5.2 Globulin 3.5 GM/DL 2-4 Albumin/Globulin Ratio 1.2 1-3 Bilirubin Total 0.8 mg/dL 0.4-1.5 48 Alkaline Phosphatase 78 U/L 30-110 Alt (SGPT) 26 U/L 14-54 Ast (Sgot) 27 U/L 12-42 eGFR Non- 77.8 > 60 eGFR 94.1 > 60 49 Laboratory test finding 06/11/2010 T3 Free 3.12 pg/mL 2.39-6.79 Laboratory test finding 04/23/2009 TSH 0.20 MIU/ML Low 0.34-5.60 Lipid Profile (Trig/Chol/HDL) 04/23/2009 Triglyceride 127 mg/dL 40-200 Cholesterol 182 mg/dL Less Than 200 50 High Density Lipoprotein 47 mg/dL 40-60 51 Cholesterol/HDL Ratio 3.87 AVERAGE 1-4.44 Low Density Lipoprotein 110 mg/dL High Less Than 100 52 Laboratory test finding 04/23/2009 Alt (SGPT) 23 U/L 14-54 Laboratory test finding 04/03/2008 TSH 0.33 MIU/ML Low 0.34-5.60 Lipid Profile (Trig/Chol/HDL) 04/03/2008 Triglyceride 118 mg/dL 40-200 Cholesterol 181 mg/dL Less Than 200 53 High Density Lipoprotein 50 mg/dL 40-60 54 Cholesterol/HDL Ratio 3.62 AVERAGE 1-4.44 Low Density Lipoprotein 107 mg/dL High Less Than 100 55 Laboratory test finding 04/03/2008 Alt (SGPT) 23 U/L 14-54 Lipid Profile 12/27/2006 Cholesterol/HDL Ratio 4.84 AVERAGE High 1-4.44 (Trig/Chol/HDL) Cholesterol 242 mg/dL High Less Than 200 56 Triglyceride 119 mg/dL 40-200 High Density Lipoprotein 50 mg/dL 40-60 Low Density Lipoprotein 168 mg/dL High Less Than 100 57 Laboratory test finding 12/27/2006 Alt (SGPT) 26 U/L 14-54 Glucose 87 mg/dL 70-105 Laboratory test finding 12/27/2006 TSH 0.39 MIU/ML 0.34-5.60 Laboratory test finding 03/30/2006 Alt (SGPT) 24 U/L 14-54 Lipid Profile 03/30/2006 Cholesterol/HDL Ratio 3.34 AVERAGE 1-4.44 (Trig/Chol/HDL) Cholesterol 177 mg/dL Less Than 200 58 Triglyceride 90 mg/dL 40-200 High Density Lipoprotein 53 mg/dL 40-60 Low Density Lipoprotein 106 mg/dL High Less Than 100 59 Laboratory test finding 03/30/2006 TSH 0.38 MIU/ML 0.34-5.60 Laboratory test finding 03/12/2005 TSH 0.15 MIU/ML Low 0.34-5.60 Alt (SGPT) 21 U/L 14-54 Lipid Profile 03/12/2005 Cholesterol/HDL Ratio 3.62 AVERAGE 1-4.44 (Trig/Chol/HDL) Cholesterol 170 mg/dL Less Than 200 60 Triglyceride 179 mg/dL 40-200 High Density Lipoprotein 47 mg/dL 40-60 Low Density Lipoprotein 87 mg/dL Less Than 100 61 Laboratory test finding 03/24/2004 TSH 0.12 MIU/ML Low 0.34-5.60 Laboratory test finding 10/15/2003 TSH 0.39 Laboratory test finding 08/27/2003 TSH 0.69 MIU/ML 0.34-5.60 Lipid Profile 08/27/2003 Cholesterol/HDL 4.10 AVERAGE 1-4.44 (Trig/Chol/HDL) Ratio Cholesterol 205 mg/dL High Less Than 200 62 Triglyceride 201 mg/dL High 40-200 High Density Lipoprotein 50 mg/dL 40-60 Low Density Lipoprotein 115 mg/dL High Less Than 100 63 Laboratory test finding 08/27/2003 Alt (SGPT) 21 U/L 14-54 1 Specific serologic response to B. burgdorferi infection is not detected, but cannot rule out early infection during which low or undetectable antibody levels to B. burgdorferi may be present. If clinically indicated, a new serum specimen should be submitted in 7-14 days. ADDITIONAL INFORMATION CDC criteria require >=5 bands for IgG or >=2 bands for IgM for the Immunoblot to be considered positive. Bands (e.g.,p41) may be detected in patients without Lyme disease, and patterns not meeting the CDC criteria should be interpreted with caution. Immunoblot should be ordered only on specimens that are positive or equivocal by a FDA-licensed Lyme disease antibody screening test (e.g., EIA). Test Performed by: [facility] [address] [place] [address] 2 void, clear, bright yellow 3 Desirable <150 Borderline high 150-199 High 200-499 Very High >500 4 Desirable <200 Borderline high 200-239 High >239 5 Low <40 Desirable: 40-60 High: >60 6 Desirable: <100 mg/dL Near Optimal: 100-129 mg/dL Borderline High: 130-159 mg/dL High: 160-189 mg/dL Very High: >189 mg/dL 7 FASTING 12 HOUR 8 void, clear, yellow 9 FASTING 12 HOUR 10 Desirable <150 Borderline high 150-199 High 200-499 Very High >500 11 Desirable <200 Borderline high 200-239 High >239 12 Low <40 Desirable: 40-60 High: >60 13 Desirable: <100 mg/dL Near Optimal: 100-129 mg/dL Borderline High: 130-159 mg/dL High: 160-189 mg/dL Very High: >189 mg/dL 14 [facility] [address] 15 Because ethnic data is not always readily available, this report includes an eGFR for both -Americans and non- Americans. The National Kidney Disease Education Program (NKDEP) does not endorse the use of the MDRD equation for patients that are not between the ages of 18 and 70, are , have extremes of body size, muscle mass, or nutritional status, or are non- or non-. According to the National Kidney Foundation, irrespective of diagnosis, the stage of the disease is based on the level of kidney function: Stage Description GFR(mL/min/1.73 m(2)) 1 Kidney damage with normal or decreased GFR 90 2 Kidney damage with mild decrease in GFR 60-89 3 Moderate decrease in GFR 30-59 4 Severe decrease in GFR 15-29 5 Kidney failure <15 (or dialysis) 16 [facility] [address] 17 RESULT: Polyclonal hypergammaglobulinemia Test Performed by: [facility] - [address] [address] Inside Sales Associate: Mati Jones II, M.D., Ph.D. 18 Desirable <150 Borderline high 150-199 High 200-499 Very High >500 19 Desirable <200 Borderline high 200-239 High >239 20 Low <40 Desirable: 40-60 High: >60 21 Desirable: <100 mg/dL Near Optimal: 100-129 mg/dL Borderline High: 130-159 mg/dL High: 160-189 mg/dL Very High: >189 mg/dL 22 FASTING 12 HOUR 23 Desirable <150 Borderline high 150-199 High 200-499 Very High >500 24 Desirable <200 Borderline high 200-239 High >239 25 Low <40 Desirable: 40-60 High: >60 26 Desirable <100 Near Optimal 100-129 Borderline high 130-159 High 160-189 Very High >189 27 FASTING 12 HOUR 28 RUN DATE: 12/19/13 [facility] LAB LIVE PAGE 1 RUN TIME: [address] [place] [address] Specimen Inquiry Name: KEREN HARTMAN : [address]: Edgar Edwards MD Acct: [id number] Unit: [id number] AGE: 63 Location: [facility] Re12/16/13 SEX: F Status: DEP ER SPEC: [id number] RICH: 12/16/13-[address]: Edgar Edwards MD REQ: [id number] RECD: 12/17/13-110 STATUS: LIZBETH HAY DR: NOVA Johnson MD _ SOURCE: URINE SPDESC: ORDERED: Urine Culture Procedure Result Verified Site Urine Culture Final 12/19/13- 0945 ML Organism 1 ESCHERICHIA COLI Lowman Count >100,000 (Many) CFU/ML 1. ESCHERICHIA COLI M.I.C. RX --------- ------ Ampicillin 8 S Cefazolin <=4 S Cefepime <=1 S Ceftriaxone <=1 S Ciprofloxacin <=0.25 S Gentamicin <=1 S Levofloxacin <=0.12 S Meropenem <=0.25 S Nitrofurantoin <=16 S Tetracycline <=1 S Pipercillin/Tazobactam <=4 S Trimethoprim/Sulfamethoxazole <=20 S Amoxicillin/Clavulanic Acid 4 S Aztreonam <=1 S Contact the Microbiology Department for any additional antibiotic reporting. END OF REPORT * ML=Testing performed at Main Lab DEPARTMENT OF PATHOLOGY, [address] [place] [address] Winston Felton M.D. Director [facility] Permit #[id number] HDL Interpretation: Undesirable: High Risk: Less than 40 MG/DL Desirable: Low Risk: Greater than 60 MG/DL 30 LDL Interpretation: Low Risk Optimal Level: LDL Less than 100 MG/DL Near or Above Optimal: LDL 100-129 MG/DL Borderline High Risk: LDL 130-159 MG/DL High Risk: LDL 160-189 MG/DL Very High Risk: LDL Greater than 189 MG/DL 31 COMPUTER MSG IN REGARD TO TSH RESULTED ON 12/28/11. DECISION MADE TO DELETE TSH ON ORDER BY ADEEL TRIAGE NOTE SENT BY OFFICE TO PROVIDER(JESICA).SEE NOTE ON ORDER SCANNED. NOTED BY ELLA 12/30/11 1150. 32 Anion gap measurement may be of limited value in the presence of any alkalosis, especially in a combined acid base disorder. . 33 A metabolite of Naproxen, O-desmethylnaproxen, has been shown to interfere with the Jendrassik-Silvia method for measuring total bilirubin. Samples from patients who have taken Naproxen have shown spurious elevation in total bilirubin levels. 34 Because ethnic data is not always readily available, this report includes an eGFR for both -Americans and non- Americans. The National Kidney Disease Education Program (NKDEP) does not endorse the use of the MDRD equation for patients that are not between the ages of 18 and 70, are , have extremes of body size, muscle mass, or nutritional status, or are non- or non-. According to the National Kidney Foundation, irrespective of diagnosis, the stage of the disease is based on the level of kidney function: Stage Description GFR(mL/min/1.73 m(2)) 1 Kidney damage with normal or decreased GFR 90 2 Kidney damage with mild decrease in GFR 60-89 3 Moderate decrease in GFR 30-59 4 Severe decrease in GFR 15-29 5 Kidney failure <15 (or dialysis) 35 -- REFERENCE VALUE -- 25-HYDROXY D TOTAL (D2+D3) Optimum levels in the normal population are 25-80 Test Performed by: [facility] Dpt of Lab Med and Pathology [address] [place] [address] Inside Sales Associate: Chris Dupree III, M.D. 36 CHOLESTEROL INTERPRETATION: Desirable: Less than 200 MG/DL Borderline-High Risk: 200-239 MG/DL High-Risk: 240 MG/DL and over 37 HDL INTERPRETATION: Undesirable: High Risk: Less than 40 MG/DL Desirable: Low Risk: Greater than 60 MG/DL 38 LDL INTERPRETATION: Low Risk Optimal Level: LDL Less than 100 MG/DL Near or Above Optimal: LDL 100-129 MG/DL Borderline High Risk: LDL 130-159 MG/DL High Risk: LDL 160-189 MG/DL Very High Risk: LDL Greater than 189 MG/DL 39 CHOLESTEROL INTERPRETATION: Desirable: Less than 200 MG/DL Borderline-High Risk: 200-239 MG/DL High-Risk: 240 MG/DL and over 40 HDL INTERPRETATION: Undesirable: High Risk: Less than 40 MG/DL Desirable: Low Risk: Greater than 60 MG/DL 41 LDL INTERPRETATION: Low Risk Optimal Level: LDL Less than 100 MG/DL Near or Above Optimal: LDL 100-129 MG/DL Borderline High Risk: LDL 130-159 MG/DL High Risk: LDL 160-189 MG/DL Very High Risk: LDL Greater than 189 MG/DL 42 -- REFERENCE VALUE -- <=33 Athyrotic individuals normally have hTg values less than 5 ng/mL. The testing method is an immunoenzymatic assay manufactured by [employer] and performed on the [employer] DXI 800. Values obtained with different assay methods or kits may be different and cannot be used interchangeably. Test results cannot be interpreted as absolute evidence for the presence or absence of malignant disease. Specimens with thyroglobulin concentrations greater than 250,000 ng/mL may give falsely lower results. Test Performed by: [facility] of [facility] Med and Pathology [address] [place] [id number] Inside Sales Associate: Chris Dupree III, M.D. 43 CHOLESTEROL INTERPRETATION: Desirable: Less than 200 MG/DL Borderline-High Risk: 200-239 MG/DL High-Risk: 240 MG/DL and over 44 HDL INTERPRETATION: Undesirable: High Risk: Less than 40 MG/DL Desirable: Low Risk: Greater than 60 MG/DL 45 LDL INTERPRETATION: Low Risk Optimal Level: LDL Less than 100 MG/DL Near or Above Optimal: LDL 100-129 MG/DL Borderline High Risk: LDL 130-159 MG/DL High Risk: LDL 160-189 MG/DL Very High Risk: LDL Greater than 189 MG/DL 46 Anion gap measurement may be of limited value in the presence of any alkalosis, especially in a combined acid base disorder. . 47 Note change in reference range as of 05/09/08. The change was based on recommendations from the [place] [employer]. 48 A metabolite of Naproxen, O-desmethylnaproxen, has been shown to interfere with the Jendrassik-Pinewood method for measuring total bilirubin. Samples from patients who have taken Naproxen have shown spurious elevation in total bilirubin levels. 49 Because ethnic data is not always readily available, this report includes an eGFR for both -Americans and non- Americans. The National Kidney Disease Education Program (NKDEP) does not endorse the use of the MDRD equation for patients that are not between the ages of 18 and 70, are , have extremes of body size, muscle mass, or nutritional status, or are non- or non-. According to the National Kidney Foundation, irrespective of diagnosis, the stage of the disease is based on the level of kidney function: Stage Description GFR(mL/min/1.73 m(2)) 1 Kidney damage with normal or decreased GFR 90 2 Kidney damage with mild decrease in GFR 60-89 3 Moderate decrease in GFR 30-59 4 Severe decrease in GFR 15-29 5 Kidney failure <15 (or dialysis) 50 CHOLESTEROL INTERPRETATION: Desirable: Less than 200 MG/DL Borderline-High Risk: 200-239 MG/DL High-Risk: 240 MG/DL and over 51 HDL INTERPRETATION: Undesirable: High Risk: Less than 40 MG/DL Desirable: Low Risk: Greater than 60 MG/DL 52 LDL INTERPRETATION: Low Risk Optimal Level: LDL Less than 100 MG/DL Near or Above Optimal: LDL 100-129 MG/DL Borderline High Risk: LDL 130-159 MG/DL High Risk: LDL 160-189 MG/DL Very High Risk: LDL Greater than 189 MG/DL 53 CHOLESTEROL INTERPRETATION: Desirable: Less than 200 MG/DL Borderline-High Risk: 200-239 MG/DL High-Risk: 240 MG/DL and over 54 HDL INTERPRETATION: Undesirable: High Risk: Less than 40 MG/DL Desirable: Low Risk: Greater than 60 MG/DL 55 LDL INTERPRETATION: Low Risk Optimal Level: LDL Less than 100 MG/DL Near or Above Optimal: LDL 100-129 MG/DL Borderline High Risk: LDL 130-159 MG/DL High Risk: LDL 160-189 MG/DL Very High Risk: LDL Greater than 189 MG/DL 56 Classification: High . 57 CALCULATED LDL APPROXIMATES THE VALUE OF A DIRECT LDL MEASUREMENT. Classification: High . 58 Classification: Desirable . 59 CALCULATED LDL APPROXIMATES THE VALUE OF A DIRECT LDL MEASUREMENT. Classification: Near or above optimal . 60 Classification: Desirable . 61 CALCULATED LDL APPROXIMATES THE VALUE OF A DIRECT LDL MEASUREMENT. Classification: Optimal Level . 62 Classification: Borderline High . 63 CALCULATED LDL APPROXIMATES THE VALUE OF A DIRECT LDL MEASUREMENT. Classification: Near or above optimal . Procedures Date CPT Code Description Status Comment 03/31/2017 83876 X-Ray Chest Two Views Completed 03/21/2017 27824 Spirometry Completed 04/13/2016 03641 Radiologic Exam Hip Completed Unilateral With Pelvis 2-3 Views 01/18/2016 Mammogram Completed 2016: negative 08/06/2014 74656 Dexa Bone Density Study One Completed Or More Sites Axial Skeleton 02/08/2014 04613 Remove Impact Cerumen Completed Requiring Instrument, Unilateral 08/19/2011 Colonoscopy Completed Normal, recommended repeat in 03/201807/26/2007 10430 X-Ray Knee,Ap&Lateral Completed Oblique Views 11/26/2005 38659 Tympanometry Completed 11/26/2005 32181 Audiometry Screen, Pure Completed Tone, Air Encounters Type Date Location Provider CPT E/M Dx Office Visit 09/05/2017 4:30p Main Office Hu Johnson M.D. 62886 H81.10 R03.0 F34.1 Office Visit 06/27/2017 10:45a Main Office Hu Johnson M.D. 65493 R10.32 R10.814 M54.5 Z23 Office Visit 04/05/2017 3:30p Main Office Hu Johnson M.D. 67853 M67.472 Office Visit 03/21/2017 4:45p Main Office Hu Johnson M.D. 93275 R05 J45.991 Office Visit 03/16/2017 11:40a [place] [address] J30.9 J45.20 Office Visit 09/28/2016 10:05a [place] [address] N39.0 Office Visit 08/16/2016 2:00p Main Office Hu Johnson M.D. 64121 Z00.01 M25.561 M25.562 M25.461 M25.462 M25.512 M25.511 R05 G47.33 E78.00 Z85.850 Office Visit 05/28/2016 11:30a Main Office Mati Herrera M.D. 87142 J01.90 Office Visit 04/13/2016 2:10p Main Office Mati Herrera M.D. 06869 M54.5 M79.605 M53.3 M25.552 Office Visit 01/27/2016 10:00a Main Office Hu Johnson M.D. 04565 H93.13 R53.83 Z85.850 G47.33 F34.1 Office Visit 10/16/2015 11:15a Main Office Walter Coburn D.O. 46156 M79.671 Office Visit 09/15/2015 9:30a Main Office Hu Johnson M.D. 45501 R05 J31.0 H69.91 Office Visit 12/12/2014 4:00p Main Office Haley Schilling RPA-C 75810 465.8 Office Visit 08/06/2014 2:00p Main Office Hu Johnson M.D. 60551 V70.0 327.23 780.79 V82.81 272.0 193 244.8 719.46 715.16 Office Visit 05/24/2014 10:15a Main Office Hu Johnson M.D. 89160 780.79 780.52 327.23 300.4 300.00 V04.81 V07.2 Office Visit 02/08/2014 1:45p Main Office Hu Johnson M.D. 21553 465.9 380.4 Office Visit 12/14/2013 11:15a Main Office Walter Coburn D.O. 55639 719.47 715.09 Office Visit 07/17/2013 3:30p Main Office Hu Johnson M.D. 16524 V70.0 327.23 272.0 193 244.8 780.52 780.79 Office Visit 05/03/2013 4:15p Main Office Walter Coburn D.O. 86462 719.46 719.45 715.09 V65.40 Office Visit 03/14/2013 11:30a [place] [address] 462 244.8 Office Visit 12/12/2012 3:00p Main Office Hu Johnson M.D. 40505 595.0 Office Visit 06/09/2012 3:15p Main Office Hu Johnson M.D. 31499 327.23 272.0 193 V75.9 Office Visit 04/20/2012 5:00p Main Office Mati Herrera M.D. 92300 599.71 599.70 595.0 780.79 780.60 Office Visit 12/23/2011 3:40p Main Office Jean Chaudhry 01664 244.8 307.49 327.52 Office Visit 07/24/2011 11:30a Main Office Jean Chaudhry 97811 525.9 465.8 462 Office Visit 06/08/2011 9:30a Main Office Hu Johnson M.D. 75052 272.0 193 724.2 V65.49 V05.8 Office Visit 09/09/2010 12:55p Main Office Hu Johnson M.D. 17757 272.0 726.5 719.46 729.1 Office Visit 07/22/2010 12:55p Main Office Hu Johnson M.D. 92912 729.1 719.46 726.5 272.0 Office Visit 06/08/2010 9:45a Main Office Hu Johnson M.D. 47851 272.0 193 346.00 V65.49 054.9 780.79 728.71 Office Visit 08/06/2009 2:00p Main Office Hu Johnson M.D. 25960 784.1 Office Visit 04/22/2009 2:45p Main Office Hu Johnson M.D. 20412 272.0 346.00 193 724.2 Office Visit 08/13/2008 2:30p Main Office Hu Johnson M.D. 99234 780.4 Office Visit 03/29/2008 9:30a Main Office Hu Johnson M.D. 65845 272.0 346.00 193 Office Visit 07/26/2007 9:15a Main Office Hu Johnson M.D. 91039 719.46 715.16 Office Visit 10/12/2006 9:30a Main Office Hu Johnson M.D. 23419 272.0 193 Office Visit 07/01/2006 1:30p Main Office Hu Johnson M.D. 17153 719.45 719.46 Office Visit 04/27/2006 9:45a Main Office Hu Johnson M.D. 58058 193 272.0 346.00 477.9 715.15 V06.1 V07.2 Office Visit 11/26/2005 3:45p Main Office Mati Herrera M.D. 94288 388.70 381.81 477.8 Office Visit 10/14/2005 1:45p Main Office supriya 60205 724.2 Office Visit 10/04/2005 4:45p Main Office Hu Johnson M.D. 93378 465.9 786.2 Office Visit 08/31/2005 10:00a Main Office Hu Johnson M.D. 33614 216.5 Office Visit 03/10/2005 2:45p Main Office Hu Johnson M.D. 49540 193 272.0 346.00 300.4 Office Visit 03/27/2004 2:45p Main Office Hu Johnson M.D. 87674 193 272.0 346.00 V76.51 Office Visit 07/01/2003 9:15a Main Office Hu Johnson M.D. 65559 239.7 272.0 Plan of Care 09/05/2017 - Hu Johnson M.D.H81.10 Benign paroxysmal vertigo, unspecified earComments:Counseled re Dx, pathophysiology discussed. Advised re Modified Kenia's exercises and H/O was provided.R03.0 Elevated blood-pressure reading, w/ o diagnosis of htnFollow up:When you are feeling well again, please check your BP at a local pharmacy etc and when you have a handful of readings, please forward them to us.F34.1 Dysthymic disorderComments:Mild Sxs. Discussed option of Tx but she really isn't interested. I advised her that there was Tx for depression available, that if she changed her mind and wanted to consider Tx she could RTO.
--- NOTE | 2017-09-29 20:38 | UC ---
Respiratory Complaint HPI - HPI Summary HPI Summary: 67 year old female with cough. c/o cough, headache, bodyache, chills, stuffy nose, decreased appetite that started yesterday. She had a temp this evening of 101.8. [ End ] - History of Current Complaint Stated Complaint: COUGH Time Seen by Provider: 09/29/17 20:37 Hx Obtained From: Patient ?: No Onset/Duration: Gradual Onset Timing: Constant Severity Initially: Mild Severity Currently: Moderate Aggravating Factors: Exertion Alleviating Factors: Nothing Associated Signs And Symptoms: Positive: Fever, Chills, Nasal Congestion - Allergies/Home Medications Allergies/Adverse Reactions: Allergies Allergy/AdvReac Type Severity Reaction Status Date / Time Codeine Allergy Severe NAUSEA, Verified 09/29/17 20:42 DIZZINESS Tramadol Allergy Intermediate Rash Verified 09/29/17 20:42 Home Medications: Home Medications Krill Oil [Krill Oil 1000 mg] 1 cap PO DAILY 09/29/17 [History Confirmed ] Levothyroxine TAB* [Synthroid TAB*] 125 mcg PO 0800 09/29/17 [History Confirmed 09/29/17] PMH/Surg Hx/FS Hx/Imm Hx Previously Healthy: Yes Endocrine History: Hypothyroidism, Dyslipidemia - Surgical History Surgical History: Yes Surgery Procedure, Year, and Place: PARTIAL Thyroidectomy; Hysterectomy - Family History Known Family History: Negative: Seizure Disorder - Social History Lives: With Family Alcohol Use: Rare Substance Use Type: None Smoking Status (MU): Never Smoked Tobacco - Immunization History Most Recent Influenza Vaccination: 2012 Review of Systems Constitutional: Fatigue ENT: Nasal Discharge, Sinus Congestion Respiratory: Cough Musculoskeletal: Myalgia Is Patient Immunocompromised?: No All Other Systems Reviewed And Are Negative: Yes Physical Exam Triage Information Reviewed: Yes Appearance: Well-Appearing, No Pain Distress, Well-Nourished Vital Signs Reviewed: Yes Eye Exam: Normal ENT Exam: Normal Dental Exam: Normal Neck exam: Normal Neck: Positive: 1 Respiratory Exam: Normal Cardiovascular Exam: Normal Musculoskeletal Exam: Normal Neurological Exam: Normal Psychological Exam: Normal Skin Exam: Normal Respiratory Course/Dx - Course Course Of Treatment: neg flu - Differential Dx/Diagnosis Differential Diagnosis/HQI/PQRI: Bronchitis, Lower Resp Infection, Sinusitis Provider Diagnoses: URI Discharge - Discharge Plan Condition: Good Disposition: HOME Prescriptions: Benzonatate [Benzonatate 200 MG] 200 mg PO TID #20 cap Patient Education Materials: Upper Respiratory Infection (ED) Referrals: Hu Johnson MD [Primary Care Provider] - 4 Days Additional Instructions: You had negative flu testing today.
[2017-09-29 20:39] VITALS: BP 152/75
== END 2017-09-29 21:31 | disposition home or self-care (01) ==
LOC: UCCORT 19:10
DX: J06.9 Acute upper respiratory infection, unspecified (principal); E03.9 Hypothyroidism, unspecified; E78.5 Hyperlipidemia, unspecified; Z90.710 Acquired absence of both cervix and uterus; Z88.5 Allergy status to narcotic agent
CPT/HCPCS: 87502; 99212; G0463

== ENCOUNTER 2019-02-12 09:22 | Emergency (ER) | payer MEDICARE ==
--- OUTSIDE RECORDS SUMMARY | 2019-02-12 09:32 | XMS REPORT | Continuity of Care Document ---
:1950 External Reference #:[id number] Author Name Minda Louis Care Team Providers Name Role Phone Hu Johnson MD Primary Care Physician Unavailable Payers Date Identification Numbers Payment Provider Subscriber Effective: 2014 Policy Number: [id number] [facility] (Medicare) Keren Osborn PayID: [id number] [place] [address] [address] [place] [address] Expires: 2014 Policy Number: [id number] Medicare Keren Osborn PayID: [id number] [address] [place] [address] Effective: 2012 Policy Number: [id number] [facility] Keren Osborn Expires: 2012 PayID: [id number] [address] [address] [place] [address] Problems Active Problems Provider Date Apnea Hector Fajardo M.D. Onset: 03/17/2012 Obstructive sleep apnea syndrome Anjali Toney DNP, RN, [facility] Onset: Family History Date Family Member(s) Observation Comments General non contributory Father Heart attack Father Alive at age 95 Mother Heart issues, aneurysm Mother due to 14 years ago () Siblings 2 Siblings Sisters ; diverticulitis, GERD, one w/sleep apnea Social History Type Date Description Comments Sex Unknown Marital Status Lives With Occupation [employer] ETOH Use Denies alcohol use Tobacco Use Start: Unknown Patient has never smoked Recreational Drug Use Denies Drug Use Smoking Status Reviewed: 02/02/19 Patient has never smoked Exercise Type/Frequency Exercises sporadically Allergies, Adverse Reactions, Alerts Active Allergies Reaction Severity Comments Date Tramadol 06/13/2015 Codeine 06/13/2015 Medications Active Medications SIG Qnty Indications Ordering Date Provider Cpap Supplies Pls provide with 12units G47.33 Tracy Smallali, 01/08/2019 necessary cpap MD supplies, mask to fit, tubing, head gear, filters. Synthroid 1 by mouth every Unknown 06/12/2015 125mcg Tablets day Coq-10 unsure of dose 1 Unknown 06/12/2015 capsule by mouth daily Simvastatin take 1 tablet by Unknown 06/12/2015 10mg Tablets mouth at night Levocetirizine take 1 tablet by Unknown Dihydrochloride mouth daily at 5mg Tablets bedtime Krill Oil once a day Unknown 350mg Capsules Multi Vitamin Daily 1 by mouth every Unknown day Tablets Cannabis Tincture 3 drops in water Unknown once per day History Medications Magnesium once a day Unknown 10/24/2016 - 01/31/2018 500mg Capsules Singulair 1 by mouth every day ( Unknown 10/24/2016 - 01/31/2018 10mg Tablets uses as needed ) Synthroid 1 by mouth every day Unknown 06/12/2015 - 10/24/2016 112mcg Tablets Glucosamine Chondroitin 1 by mouth every day Unknown 06/12/2015 - 2017 1500 Complex 1500Com Capsules Calcium Magnesium 750 daily Unknown 06/12/2015 - 10/24/2016 300-300mg Tablets [facility] [place] Wort as directed by mouth Unknown 06/12/2015 - 01/31/2018 150mg Capsules Vitamin D 1 by mouth every day Unknown 06/12/2015 - 01/31/2018 Nasonex 2 sprays each nostril Unknown - 02/01/2019 50mcg/Act Suspension every day Vital Signs Date Vital Result Comment 02/02/2019 11:45am Height 64.5 inches 5'4.50" Weight 165.12 lb Heart Rate 72 /min BP Systolic Sitting 112 mmHg Lue reg cuff BP Diastolic Sitting 84 mmHg Lue reg cuff Respiratory Rate 16 /min O2 % BldC Oximetry 96 % On Ra BMI (Body Mass Index) 27.9 kg/m2 02/01/2018 1:53pm Height 64.5 inches 5'4.50" Weight 168.00 lb Heart Rate 72 /min BP Systolic Sitting 110 mmHg Rue reg cuff BP Diastolic Sitting 86 mmHg Rue reg cuff Respiratory Rate 16 /min O2 % BldC Oximetry 98 % On Ra BMI (Body Mass Index) 28.4 kg/m2 10/25/2016 10:18am Height 64.5 inches 5'4.50" Weight 164.00 lb Heart Rate 68 /min BP Systolic 128 mmHg BP Diastolic 78 mmHg Respiratory Rate 14 /min O2 % BldC Oximetry 99 % BMI (Body Mass Index) 27.7 kg/m2 06/13/2015 9:04am Height 64.5 inches 5'4.50" Weight 164.50 lb Heart Rate 74 /min BP Systolic Sitting 126 mmHg BP Diastolic Sitting 72 mmHg Respiratory Rate 18 /min O2 % BldC Oximetry 98 % BMI (Body Mass Index) 27.8 kg/m2 Neck Circumference in inches 14 Procedures Date Code Description Status 10/17/2018 28703368 Mammogram Completed 01/22/2013 39102 Rad Exam; Both Knees, Standing Ap Completed 04/04/2012 52428 Polysomnography Sleep Staging 4+ Parameters W/Cpap Completed 03/03/2012 83044 Polysomnography Sleep Staging 4+ Parameters Completed 03/03/2012 38436 Polysomnography Sleep Staging 4+ Parameters Completed Encounters Type Date Location Provider Dx Diagnosis Office Visit 06/27/2018 [facility] Lana Shannon, D18.01 Hemangioma of skin 1:10p MD and subcutaneous tissue I78.8 Other diseases of capillaries D23.71 Oth benign neoplasm skin/ right lower limb, including hip L82.1 Other seborrheic keratosis Office Visit 02/01/2018 [facility] Anjali G47.33 Obstructive sleep 2:00p [facility] T[facility] RN, apnea (adult) [facility] (pediatric) Office Visit 10/25/2016 [facility] Anjali G47.33 Obstructive sleep 10:15a [facility] RN, apnea (adult) [facility] (pediatric) Office Visit 06/13/2015 [facility] Anjali G47.33 Obstructive sleep 9:00a [facility] T[facility] RN, apnea (adult) [facility] (pediatric) Office Visit 01/22/2013 Orthopedic Nakul Michel, 716.96 Arthropathy 1:15p [facility] Unspec Lower Leg C.M.A. 844.9 Sprains & Strains Knee & Leg Unspec Office Visit 06/09/2012 12:04p Tana Young 327.23 [facility] Fajardo Apnea Adult [facility] Pediatric Office Visit 04/24/2012 11:09a Tana Young 327.23 [facility] Faj[facility] Apnea Adult [facility] Pediatric V67.59 Exam Follow Up Other Plan of Treatment Future Appointment(s):02/05/2020 2:00 pm - Anjali Toney DNP, RN, [facility] at [facility]02/02/2019 - Anjali Toney DNP, RN, TAX[facility] DRIVER- BCG47.33 Obstructive sleep apnea (adult) (pediatric)New Orders:[facility], Ordered: 02/02/19Comments:Sleep Apnea - NPSG (SNS) 03/03/12 AHI 40.7/hour, talia oxygen 86% BMI 26.6Follow up:1 yearRecommendations:Continue PAP device, Benefitting and compliant with treatment. Trial a different mask (Airfit P10, sample provided) or Airfit N30i Cleaning Wipe off mask daily (baby wipe-no scent , or warm water) Cleanmask, tubing, filter, and water chamber weekly in mild no scent dish soap and water. Hang to dry.If you have any sleepiness while driving you MUST avoid operating a vehicle or machinery. If you have difficulty with your equipment, or need to replace your mask or hoses, please contact your homecareagency. A weight change of 20 pounds or more may have an effect on your equipment; if you are experiencing problems please call for an appointment. If you have any further questions, please call the [facility] at .
[2019-02-12 10:02] VITALS: BP 114/70
--- NOTE | 2019-02-12 10:17 | UC ---
Skin Complaint HPI - HPI Summary HPI Summary: 68 yo female noted pruritic rash this AM rash worse inner thighs/breasts and axilla has been on 4-5 days worth of amox for sinus infection no fever or chills her sinus symptoms have been improving on AMOX - History of Current Complaint Chief Complaint: UCRash Time Seen by Provider: 02/12/19 09:56 Stated Complaint: SKIN COMPLAINT Hx Obtained From: Patient Onset/Duration: Sudden Onset Skin Exposure Onset/Duration: Hours Ago Timing: Constant Onset Severity: Mild Current Severity: Mild Pain Intensity: 0 Pain Scale Used: 0-10 Numeric Location: Other - see hpi Character: Pruritus, Hives Aggravating Factor(s): Nothing Alleviating Factor(s): Nothing Associated Signs & Symptoms: Positive: Rash Related History: Recent change in medication - Allergy/Home Medications Allergies/Adverse Reactions: Allergies Allergy/AdvReac Type Severity Reaction Status Date / Time amoxicillin Allergy Unknown Rash Verified 02/12/19 10:20 tramadol Allergy Rash Verified 02/12/19 10:03 codeine AdvReac GI Upset Verified 02/12/19 10:03 Home Medications: Home Medications Benzonatate CAP* [Tessalon 100 MG CAP*] 100 mg PO TID 02/12/19 [History Confirmed 02/12/19] Fexofenadine (NF) [Amanda 180 (NF)] 180 mg PO DAILY 02/12/19 [History Confirmed 02/12/19] PMH/Surg Hx/FS Hx/Imm Hx Previously Healthy: Yes - Surgical History Surgical History: Yes Surgery Procedure, Year, and Place: PARTIAL Thyroidectomy; Hysterectomy - Family History Known Family History: Negative: Seizure Disorder - Social History Alcohol Use: Rare Substance Use Type: None Smoking Status (MU): Never Smoked Tobacco - Immunization History Most Recent Influenza Vaccination: 2012 Review of Systems All Other Systems Reviewed And Are Negative: Yes Constitutional: Positive: Negative Skin: Positive: Rash Eyes: Positive: Negative ENT: Positive: Nasal Discharge, Sinus Congestion, Sinus Pain/Tenderness Respiratory: Positive: Cough Cardiovascular: Positive: Negative Gastrointestinal: Positive: Negative Genitourinary: Positive: Negative Motor: Positive: Negative Neurovascular: Positive: Negative Musculoskeletal: Positive: Negative Neurological: Positive: Negative Psychological: Positive: Negative Physical Exam Triage Information Reviewed: Yes Appearance: Well-Appearing, No Pain Distress, Well-Nourished Vital Signs: Initial Vital Signs Temp 97 F 02/12/19 09:55 Pulse 66 02/12/19 09:55 Resp 16 02/12/19 09:55 BP 114/70 02/12/19 09:55 Pulse Ox 99 02/12/19 09:55 Vital Signs Reviewed: Yes Eyes: Positive: Conjunctiva Clear ENT: Positive: Hearing grossly normal, Nasal congestion, Nasal drainage, Sinus tenderness, Uvula midline. Negative: Tonsillar swelling, Tonsillar exudate, Trismus, Muffled voice, Hoarse voice Dental Exam: Normal Neck: Positive: Supple, Nontender, No Lymphadenopathy Respiratory: Positive: Lungs clear, Normal breath sounds, No respiratory distress, No accessory muscle use Cardiovascular: Positive: RRR, No Murmur Abdomen Description: Positive: Nontender, No Organomegaly, Soft. Negative: CVA Tenderness (R), CVA Tenderness (L) Bowel Sounds: Positive: Present Musculoskeletal: Positive: ROM Intact, No Edema Neurological: Positive: Alert, Muscle Tone Normal Psychological Exam: Normal Skin: Positive: Rashes - urticarial rash Course/Dx - Diagnoses Provider Diagnosis: Urticaria Discharge - Sign-Out/Discharge Documenting (check all that apply): Patient Departure All imaging exams completed and their final reports reviewed: No Studies - Discharge Plan Condition: Stable Disposition: HOME Prescriptions: Azithromycin TAB* [Zithromax TAB*] 250 mg PO DAILY #6 tab Patient Education Materials: Urticaria (ED) Referrals: Hu Johnson MD [Primary Care Provider] - 3 Days (if not better) Additional Instructions: This may be due to your antibiotic stop amox start z-mary take your amanda cool compresses - Billing Disposition and Condition Condition: STABLE Disposition: Home
== END 2019-02-12 10:32 | disposition home or self-care (01) ==
LOC: UCCORT 09:22
DX: L50.9 Urticaria, unspecified (principal); Z88.0 Allergy status to penicillin; Z88.5 Allergy status to narcotic agent
CPT/HCPCS: 99212; G0463

== ENCOUNTER 2023-09-27 07:30 | Observation (INO) ==
[~2023-09-27 07:30] MED LIST: Buffered Lidocaine 1% SYRIN 1 ml INTRADERM ONE; Famotidine IV 10 MG/ML 2 ml VIAL (20 mg) IV ONE; Lactated Ringers 1000 ml BAG 1,000 ML IV SCH; Naloxone 0.4 mg VIAL 0.4 mg/ml 1 ml VIAL IV PRN; Ondansetron 4 mg VIAL 2 MG/ML 2 ml VIAL IV PRN; fentaNYL 100 mcg/2 ml 50 MCG/ML VIAL IV PRN
[2023-09-27 12:41] LABS: Rapid COVID-19 Molecular Undetected (Undetected)
[2023-09-27] MEDS ORDERED: ceFAZolin 2 GM in NS PREMIX 2 GM/100 ML BAG IVPB ONE (12:41)
[2023-09-27] MEDS ORDERED: Famotidine IV 10 MG/ML 2 ml VIAL (20 mg) ONE (12:41)
[2023-09-27] MEDS ORDERED: Dexamethasone IV 4 MG/ML VIAL 1 ml VIAL ONE ×2 (14:09→15:32)
[2023-09-27] MEDS ORDERED: Midazolam 2 mg/2 ml VIAL 1 mg/ml 2 ml VIAL (2 mg) ONE (14:09)
[2023-09-27] MEDS ORDERED: ROPIVACAINE 5 MG/ML 30 ML BTL (0.5%) ONE ×2 (14:09→14:16)
[2023-09-27] MEDS ORDERED: Propofol 10 MG/ML 20 ML BTL ONE (15:12)
[2023-09-27] MEDS ORDERED: Lidocaine 2% PF 5 ML VIAL ONE (15:26)
[2023-09-27] MEDS ORDERED: Ondansetron 4 mg VIAL 2 MG/ML 2 ml VIAL ONE (15:32)
[2023-09-27] MEDS ORDERED: Acetaminophen IV 1 GM/100ML 1,000 MG/100 ML BAG IV ONE (15:32)
[2023-09-27] MEDS ORDERED: Lactulose 30 ml UDC PO PRN (16:02)
[2023-09-27] MEDS ORDERED: Ondansetron 4 mg VIAL 2 MG/ML 2 ml VIAL IV PRN (16:02)
[2023-09-27] MEDS ORDERED: Morphine 2 MG/ML SYRINGE IV PRN (16:02)
[2023-09-27] MEDS ORDERED: Magnesium Hydroxide LIQ 30 ML UDC PO PRN (16:02)
[2023-09-27] MEDS ORDERED: Ondansetron ODT 4 mg TAB 4 MG TAB PO PRN (16:02)
[2023-09-27] MEDS ORDERED: Scopolamine 1 mg/72hr PATCH TRANSDERM PRN (16:07)
[2023-09-27] MEDS ORDERED: Lactated Ringers 1000 ml BAG 1,000 ML IV SCH (17:00)
[2023-09-27] MEDS ORDERED: Simvastatin 10 mg TAB (NF) PO SCH (21:00)
[2023-09-27] MEDS: Magnesium Hydroxide LIQ 30 ML UDC PO SCH (21:01)
[2023-09-27] MEDS: ceFAZolin 1 GM ADVAN 1 GM in NS 0.9% 50 ML 50 ML IVPB SCH (22:40)
[2023-09-28] MEDS: ceFAZolin 1 GM ADVAN 1 GM in NS 0.9% 50 ML 50 ML IVPB SCH ×2 (07:53→14:11)
[2023-09-28] MEDS: Magnesium Hydroxide LIQ 30 ML UDC PO SCH (08:48)
[2023-09-28] MEDS ORDERED: Vitamin THERAPEUTIC TAB PO SCH (09:00)
[2023-09-28 09:40] LABS: Hematocrit 36.8 % (35-45); Hemoglobin 12.3 g/dL (11.5-14.3); Mean Platelet Volume 9.6 fL (7.5-11.2); Platelet Count 226 10^3/uL (150-450)
[2023-09-28 10:12] LABS: Calcium 9.2 mg/dL (8.6-10.3); Creatinine, Serum 0.94 mg/dL (0.51-0.95); Potassium 4.6 mmol/L (3.5-5.0); eGFR CKD-EPI 63.7 (>60)
[2023-09-28 14:28] VITALS: BP 120/58
== END 2023-09-28 15:05 | disposition home or self-care (01) ==
LOC: AA 11:29 → INTOOBSV 11:29 → SSU 19:47
PROVIDERS: ADMIT Orthopaedic Surgery Adult Reconstructive Orthopaedic Surgery; ATTEND Orthopaedic Surgery Adult Reconstructive Orthopaedic Surgery